=== PATIENT | female | born 1965 | race Caucasian/White ===

== ENCOUNTER 2017-12-09 15:27 | Inpatient (IN) | payer MEDICARE, MEDICAID ==
[~2017-12-09] VITALS: Ht 165.1 cm; Wt 95.0 kg
[2017-12-09] MEDS ORDERED: LURA20TA PO (16:07)
[2017-12-09] MEDS ORDERED: SERT50TA12 PO (16:07)
[2017-12-09] MEDS ORDERED: LISI1TAB9 PO (16:39)
[2017-12-09] MEDS ORDERED: PANT40TA25 PO (16:39)
[2017-12-09] MEDS ORDERED: AMIT50TA3 PO (16:39)
[2017-12-09 17:05] LABS: AMPHET/METH SCREEN,URINE NEGATIVE (NEGATIVE); BARBITURATE SCREEN, URINE NEGATIVE (NEGATIVE); BENZODIAZEPINES SCREEN,URINE NEGATIVE (NEGATIVE); CANNABINOID SCREEN,URINE NEGATIVE (NEGATIVE); COCAINE SCREEN,URINE NEGATIVE (NEGATIVE); METHADONE SCREEN, URINE NEGATIVE (NEGATIVE); OPIATE SCREEN,URINE NEGATIVE (NEGATIVE)
[2017-12-09 17:06] LABS: PHENCYCLIDINE SCREEN,URINE NEGATIVE (NEGATIVE)
[2017-12-09 17:12] LABS: BASOPHILS % (AUTO) 0.5 % (0.0-2.0); EOSINOPHILS % (AUTO) 1.8 % (1.0-6.0); HEMATOCRIT 34.5 % (36-46); HEMOGLOBIN 11.2 g/dL (12.0-16.0); LYMPHOCYTES # (AUTO) 1.8 K/uL (1.0-4.8); MEAN CORPUSCULAR HEMOGLOBIN 23.5 pg (26.0-34.0); MEAN CORPUSCULAR HGB CONC 32.3 G/dL (31.0-37.0); MEAN CORPUSCULAR VOLUME 73 fL (80-100); MONOCYTES # (AUTO) 0.6 K/uL (0.1-1.0); MONOCYTES % (AUTO) 8.3 % (2.0-9.0); NEUTROPHILS # (AUTO) 4.9 K/uL (1.8-7.7); NEUTROPHILS % (AUTO) 65.4 % (40.0-70.0); PLATELET COUNT (AUTO) 287 K/uL (150-450); RED BLOOD CELL COUNT(AUTO) 4.74 MIL/uL (4.00-5.20); RED CELL DISTRIBUTION WIDTH 17.4 % (11.5-14.5)
[2017-12-09 17:22] LABS: ANION GAP 11 mmol/L (8-16); CALCIUM, TOTAL 8.6 mg/dL (8.8-10.5); CARBON DIOXIDE 27 mmol/L (22-29); CHLORIDE 102 mmol/L (98-107); CREATININE 0.78 mg/dL (0.60-1.30); GLOMERULAR FILTR. RATE CALC > 60 mL/min (>60); GLUCOSE,RANDOM 84 mg/dL (70-110); POTASSIUM 3.3 mmol/L (3.5-5.1); SODIUM SERUM 140 mmol/L (136-145); UREA NITROGEN, BLOOD 8 mg/dL (7-18)
[2017-12-09 17:28] LABS: ALANINE AMINOTRANSFERASE 45 U/L (12-78); ALBUMIN 3.9 g/dL (3.4-5.0); ALKALINE PHOSPHATASE 92 U/L (46-116); ASPARTATE AMINOTRANSFERASE 26 U/L (15-37); BILIRUBIN,TOTAL 0.2 mg/dL (0.1-1.0); TOTAL PROTEIN, SERUM 7.7 g/dL (6.4-8.2)
[2017-12-09] MEDS ORDERED: HALOPERIDOL 5 MG TABLET PO PRN (18:15)
[2017-12-09] MEDS ORDERED: POTASSIUM CHLORIDE 20 MEQ ER TABLET ONE (22:27)
[2017-12-09] MEDS ORDERED: POTASSIUM CHLORIDE 20 MEQ ER TABLET PO ONE (22:30)
[2017-12-10 00:12] VITALS: BP 141/83
[2017-12-10] MEDS: LORazepam 2 MG TABLET PO PRN (00:16)
[2017-12-10] MEDS ORDERED: PETROLATUM,WHITE 71 GM JELLY TP PRN (02:30)
[2017-12-10] MEDS ORDERED: LOPERAMIDE HCL 2 MG CAPSULE PO PRN (02:30)
[2017-12-10] MEDS ORDERED: MAG HYDROX/AL HYDROX/SIMETH ES 30 ML SUSPENSION UDCUP PO PRN (02:30)
[2017-12-10] MEDS ORDERED: MAGNESIUM HYDROXIDE SUSPENSION 30 ML UDCUP PO PRN (02:30)
[2017-12-10] MEDS ORDERED: CloNIDine HCL 0.1 MG TABLET PO PRN (02:30)
[2017-12-10] MEDS ORDERED: ALBUTEROL SULFATE HFA 90 MCG/PUFF 8 GM INHALER IH PRN (02:30)
[2017-12-10 08:23] LABS: BASOPHILS % (AUTO) 0.3 % (0.0-2.0); EOSINOPHILS % (AUTO) 2.4 % (1.0-6.0); HEMATOCRIT 35.7 % (36-46); HEMOGLOBIN 11.3 g/dL (12.0-16.0); LYMPHOCYTES # (AUTO) 2.4 K/uL (1.0-4.8); LYMPHOCYTES % (AUTO) 26.3 % (22.0-44.0); MEAN CORPUSCULAR HEMOGLOBIN 23.3 pg (26.0-34.0); MEAN CORPUSCULAR HGB CONC 31.7 G/dL (31.0-37.0); MEAN CORPUSCULAR VOLUME 73 fL (80-100); MONOCYTES # (AUTO) 0.8 K/uL (0.1-1.0); MONOCYTES % (AUTO) 8.4 % (2.0-9.0); NEUTROPHILS # (AUTO) 5.6 K/uL (1.8-7.7); NEUTROPHILS % (AUTO) 62.6 % (40.0-70.0); PLATELET COUNT (AUTO) 320 K/uL (150-450); RED BLOOD CELL COUNT(AUTO) 4.86 MIL/uL (4.00-5.20); RED CELL DISTRIBUTION WIDTH 17.8 % (11.5-14.5)
[2017-12-10 08:50] LABS: ALANINE AMINOTRANSFERASE 41 U/L (12-78); ALBUMIN 3.9 g/dL (3.4-5.0); ALKALINE PHOSPHATASE 90 U/L (46-116); ANION GAP 8 mmol/L (8-16); ASPARTATE AMINOTRANSFERASE 21 U/L (15-37); BILIRUBIN,TOTAL 0.3 mg/dL (0.1-1.0); CALCIUM, TOTAL 8.3 mg/dL (8.8-10.5); CARBON DIOXIDE 28 mmol/L (22-29); CHLORIDE 104 mmol/L (98-107); CREATININE 0.72 mg/dL (0.60-1.30); FREE T4 (FREE THYROXINE) 0.84 ng/dL (0.76-1.46); GLOMERULAR FILTR. RATE CALC > 60 mL/min (>60); GLUCOSE,RANDOM 118 mg/dL (70-110); POTASSIUM 3.7 mmol/L (3.5-5.1); SODIUM SERUM 140 mmol/L (136-145); THYROID STIMULATING HORMONE 1.74 uIU/mL (0.36-3.74); TOTAL PROTEIN, SERUM 7.9 g/dL (6.4-8.2); UREA NITROGEN, BLOOD 9 mg/dL (7-18)
[2017-12-10] MEDS: NICOTINE 14 MG/24 HOUR PATCH TD SCH (09:00)
[2017-12-10] MEDS ORDERED: POTASSIUM CHLORIDE 20 MEQ ER TABLET PO SCH (09:00)
[2017-12-10 09:14] VITALS: BP 136/80
[2017-12-10] MEDS: ARIPiprazole 10 MG TABLET PO SCH (11:57)
[2017-12-10] MEDS: FERROUS SULFATE 325 MG EC TABLET PO SCH (16:32)
[2017-12-11] MEDS: FERROUS SULFATE 325 MG EC TABLET PO SCH ×2 (06:37→16:43)
[2017-12-11 06:48] VITALS: BP 131/78
[2017-12-11 08:00] VITALS: BP 121/75
[2017-12-11 08:46] LABS: HEMOGLOBIN A1C 7.6 % (4.5-6.2)
[2017-12-11] MEDS: HYDROCHLOROTHIAZIDE 25 MG TABLET PO SCH (08:54)
[2017-12-11] MEDS: LISINOPRIL 10 MG TABLET PO SCH (08:54)
[2017-12-11] MEDS: ARIPiprazole 10 MG TABLET PO SCH (08:54)
[2017-12-11] MEDS: NICOTINE 14 MG/24 HOUR PATCH TD SCH (08:55)
[2017-12-11 09:13] LABS: CHOL/HDL RATIO 3.9 (3.9-5.7); THYROID STIMULATING HORMONE 0.75 uIU/mL (0.36-3.74)
[2017-12-11 13:06] VITALS: BP 117/57
[2017-12-11] MEDS: IBUPROFEN 400 MG TABLET PO PRN ×2 (13:06→22:26)
[2017-12-11 16:00] VITALS: BP 133/99
[2017-12-11] MEDS: LORazepam 2 MG TABLET PO PRN (16:59)
[2017-12-11 22:26] VITALS: BP 135/86
[2017-12-12] MEDS: FERROUS SULFATE 325 MG EC TABLET PO SCH ×2 (07:05→16:02)
[2017-12-12 07:23] VITALS: BP 132/88
[2017-12-12] MEDS: LISINOPRIL 10 MG TABLET PO SCH (08:40)
[2017-12-12] MEDS: ARIPiprazole 10 MG TABLET PO SCH (08:40)
[2017-12-12] MEDS: NICOTINE 14 MG/24 HOUR PATCH TD SCH (08:42)
[2017-12-12] MEDS: HYDROCHLOROTHIAZIDE 25 MG TABLET PO SCH (08:42)
[2017-12-12] MEDS: LORazepam 2 MG TABLET PO PRN ×3 (09:32→21:17)
[2017-12-12] MEDS: IBUPROFEN 400 MG TABLET PO PRN (11:47)
[2017-12-12 16:00] VITALS: BP 132/89
[2017-12-12] MEDS: ACETAMINOPHEN 325 MG TABLET PO PRN (16:37)
[2017-12-12] MEDS: ONDANSETRON HCL 4 MG TABLET PO PRN (17:15)
[2017-12-12 21:15] VITALS: BP 128/85
[2017-12-13 05:08] VITALS: BP 135/84
[2017-12-13] MEDS: LORazepam 2 MG TABLET PO PRN ×3 (05:25→22:48)
[2017-12-13] MEDS: IBUPROFEN 400 MG TABLET PO PRN ×2 (05:26→14:05)
[2017-12-13] MEDS: FERROUS SULFATE 325 MG EC TABLET PO SCH ×2 (06:46→16:08)
[2017-12-13] MEDS: ARIPiprazole 10 MG TABLET PO SCH ×2 (09:00→16:08)
[2017-12-13] MEDS: NICOTINE 14 MG/24 HOUR PATCH TD SCH (09:00)
[2017-12-13 09:30] VITALS: BP 155/77
[2017-12-13] MEDS: ACETAMINOPHEN 325 MG TABLET PO PRN (09:30)
[2017-12-13] MEDS: HYDROCHLOROTHIAZIDE 25 MG TABLET PO SCH (09:32)
[2017-12-13] MEDS: LISINOPRIL 10 MG TABLET PO SCH (09:32)
[2017-12-13 16:15] VITALS: BP 133/72
[2017-12-13] MEDS: ONDANSETRON HCL 4 MG TABLET PO PRN (17:38)
[2017-12-14] MEDS: ZOLPIDEM TARTRATE 10 MG TABLET PO PRN (01:17)
[2017-12-14 01:41] VITALS: BP 133/71
[2017-12-14 06:34] LABS: GLUCOMETER DEV NAME(LOC) BV3S 2; GLUCOSE,POINT OF CARE 97 MG/DL (70-110)
[2017-12-14] MEDS: FERROUS SULFATE 325 MG EC TABLET PO SCH ×2 (07:08→16:52)
[2017-12-14] MEDS: LISINOPRIL 10 MG TABLET PO SCH (08:18)
[2017-12-14] MEDS: HYDROCHLOROTHIAZIDE 25 MG TABLET PO SCH (08:18)
[2017-12-14] MEDS: ARIPiprazole 10 MG TABLET PO SCH ×2 (08:19→16:02)
[2017-12-14 08:26] VITALS: BP 138/79
[2017-12-14 16:02] VITALS: BP 119/67
[2017-12-14] MEDS: IBUPROFEN 400 MG TABLET PO PRN (16:02)
[2017-12-14] MEDS: LORazepam 2 MG TABLET PO PRN (16:02)
[2017-12-14 16:11] VITALS: BP 133/78
[2017-12-14] MEDS ORDERED: LORazepam 2 MG/ML VIAL IM ONE (18:30)
[2017-12-14] MEDS ORDERED: HALOPERIDOL LACTATE 5 MG/ML VIAL IM ONE (18:30)
[2017-12-14] MEDS ORDERED: DiphenhydrAMINE HCL 50 MG/ML VIAL IM ONE (18:30)
[2017-12-14 23:45] VITALS: BP 137/84
[2017-12-15 04:55] VITALS: BP 127/61
[2017-12-15] MEDS: FERROUS SULFATE 325 MG EC TABLET PO SCH ×2 (07:01→17:00)
[2017-12-15 08:36] VITALS: BP 128/71
[2017-12-15] MEDS: ARIPiprazole 10 MG TABLET PO SCH ×2 (09:00→17:00)
[2017-12-15] MEDS: HYDROCHLOROTHIAZIDE 25 MG TABLET PO SCH (09:00)
[2017-12-15] MEDS: LISINOPRIL 10 MG TABLET PO SCH (09:49)
[2017-12-15 16:35] VITALS: BP 136/80
[2017-12-15] MEDS: ZOLPIDEM TARTRATE 10 MG TABLET PO PRN (20:26)
[2017-12-15 21:24] VITALS: BP 139/82
[2017-12-15] MEDS: ACETAMINOPHEN 325 MG TABLET PO PRN (21:27)
[2017-12-16 01:52] VITALS: BP 137/77
[2017-12-16] MEDS: FERROUS SULFATE 325 MG EC TABLET PO SCH ×2 (06:35→16:50)
[2017-12-16] MEDS: LORazepam 2 MG TABLET PO PRN ×2 (08:32→16:49)
[2017-12-16] MEDS: LISINOPRIL 10 MG TABLET PO SCH (08:32)
[2017-12-16] MEDS: ARIPiprazole 10 MG TABLET PO SCH ×2 (08:32→17:00)
[2017-12-16] MEDS: HYDROCHLOROTHIAZIDE 25 MG TABLET PO SCH (08:32)
[2017-12-16 16:05] VITALS: BP 128/77
[2017-12-16 16:50] VITALS: BP 139/88
[2017-12-16] MEDS: DOCUSATE SODIUM 100 MG CAPSULE PO PRN (16:50)
[2017-12-16] MEDS: IBUPROFEN 400 MG TABLET PO PRN (16:50)
[2017-12-16] MEDS: ZOLPIDEM TARTRATE 10 MG TABLET PO PRN (20:16)
[2017-12-17 00:37] VITALS: BP 132/79
[2017-12-17] MEDS: IBUPROFEN 400 MG TABLET PO PRN ×2 (00:41→17:50)
[2017-12-17] MEDS: FERROUS SULFATE 325 MG EC TABLET PO SCH ×2 (06:32→16:57)
[2017-12-17 08:15] VITALS: BP 122/68
[2017-12-17] MEDS: HYDROCHLOROTHIAZIDE 25 MG TABLET PO SCH (09:00)
[2017-12-17] MEDS: ARIPiprazole 10 MG TABLET PO SCH ×2 (09:00→16:57)
[2017-12-17] MEDS: LISINOPRIL 10 MG TABLET PO SCH (09:18)
[2017-12-17] MEDS: LORazepam 2 MG TABLET PO PRN ×2 (09:18→21:41)
[2017-12-17] MEDS ORDERED: MAG HYDROX/AL HYDROX/SIMETH ES 30 ML SUSPENSION UDCUP PO PRN (10:45)
[2017-12-17] MEDS: DOCUSATE SODIUM 100 MG CAPSULE PO PRN (12:57)
[2017-12-17 16:00] VITALS: BP 131/87
[2017-12-17 18:50] VITALS: BP 128/85
[2017-12-18 00:10] VITALS: BP 114/75
[2017-12-18] MEDS: ZOLPIDEM TARTRATE 10 MG TABLET PO PRN ×2 (00:22→20:41)
[2017-12-18] MEDS: FERROUS SULFATE 325 MG EC TABLET PO SCH ×2 (06:53→16:29)
[2017-12-18] MEDS: HYDROCHLOROTHIAZIDE 25 MG TABLET PO SCH (09:00)
[2017-12-18] MEDS: ARIPiprazole 10 MG TABLET PO SCH ×2 (09:00→16:30)
[2017-12-18] MEDS: LISINOPRIL 10 MG TABLET PO SCH (09:47)
[2017-12-18] MEDS: LORazepam 2 MG TABLET PO PRN ×2 (09:48→16:29)
[2017-12-18 16:04] VITALS: BP 122/73
[2017-12-18] MEDS: DOCUSATE SODIUM 100 MG CAPSULE PO PRN ×2 (16:29→20:42)
[2017-12-19] MEDS: ACETAMINOPHEN 325 MG TABLET PO PRN (00:17)
[2017-12-19] MEDS: FERROUS SULFATE 325 MG EC TABLET PO SCH (07:00)
[2017-12-19 08:29] VITALS: BP 130/86
[2017-12-19] MEDS: ARIPiprazole 10 MG TABLET PO SCH (09:00)
[2017-12-19] MEDS: HYDROCHLOROTHIAZIDE 25 MG TABLET PO SCH (09:00)
[2017-12-19] MEDS: LISINOPRIL 10 MG TABLET PO SCH (09:28)
[2017-12-19] MEDS ORDERED: HYDR25TA PO (12:53)
[2017-12-19] MEDS ORDERED: ARIP10TA8 PO (12:53)
[2017-12-19] MEDS ORDERED: LISI-661 PO (12:53)
[2017-12-19] MEDS ORDERED: FERR-89 PO (12:53)
== END 2017-12-19 14:00 | disposition home or self-care (01) | DRG 885 ==
LOC: EMS 15:29 → B3A 20:30
PROVIDERS: ADMIT Psychiatry & Neurology Child & Adolescent Psychiatry; ATTEND Psychiatry & Neurology Child & Adolescent Psychiatry
DX: F31.4 Bipolar disorder, current episode depressed, severe, without psychotic features (principal); F23 Brief psychotic disorder; D64.9 Anemia, unspecified; E78.5 Hyperlipidemia, unspecified; E83.51 Hypocalcemia; E87.6 Hypokalemia; I10 Essential (primary) hypertension; K21.9 Gastro-esophageal reflux disease without esophagitis; M19.90 Unspecified osteoarthritis, unspecified site; R73.03 Prediabetes; Z59.0 Homelessness; Z85.841 Personal history of malignant neoplasm of brain; Z88.1 Allergy status to other antibiotic agents
CPT/HCPCS: 83036; 84439; 84443; 99285; G0480; J1200; J1630; J2060; Q0162

== ENCOUNTER 2017-12-14 19:00 | Emergency (ER) | payer MEDICARE, MEDICAID ==
[~2017-12-14] VITALS: Ht 162.6 cm; Wt 113.6 kg
[~2017-12-14 19:00] MED LIST: AMIT50TA3 PO; LISI1TAB9 PO; LURA20TA PO; PANT40TA25 PO; SERT50TA12 PO
[2017-12-14] MEDS ORDERED: METOCLOPRAMIDE HCL 5 MG/ML 2 ML VIAL IM ONE (20:15)
[2017-12-14] MEDS ORDERED: MORPHINE SULFATE 4 MG/ML SYRINGE IM ONE (20:15)
[2017-12-14 20:24] LABS: CALCIUM, TOTAL 9.3 mg/dL (8.8-10.5); CREATININE 1.06 mg/dL (0.60-1.30); POTASSIUM 3.6 mmol/L (3.5-5.1)
[2017-12-14 20:29] LABS: ALBUMIN 4.6 g/dL (3.4-5.0); BILIRUBIN,TOTAL 0.2 mg/dL (0.1-1.0)
[2017-12-14 21:35] LABS: BASOPHILS % (AUTO) 0.2 % (0.0-2.0); EOSINOPHILS % (AUTO) 0.7 % (1.0-6.0); HEMATOCRIT 39.5 % (36-46); HEMOGLOBIN 12.7 g/dL (12.0-16.0); LYMPHOCYTES # (AUTO) 1.4 K/uL (1.0-4.8); LYMPHOCYTES % (AUTO) 14.2 % (22.0-44.0); MEAN CORPUSCULAR HEMOGLOBIN 23.8 pg (26.0-34.0); MEAN CORPUSCULAR HGB CONC 32.3 G/dL (31.0-37.0); MEAN CORPUSCULAR VOLUME 74 fL (80-100); MONOCYTES # (AUTO) 0.5 K/uL (0.1-1.0); MONOCYTES % (AUTO) 5.3 % (2.0-9.0); NEUTROPHILS % (AUTO) 79.6 % (40.0-70.0); PLATELET COUNT (AUTO) 352 K/uL (150-450); RED BLOOD CELL COUNT(AUTO) 5.35 MIL/uL (4.00-5.20)
[2017-12-14] MEDS ORDERED: DIPHENOXYLATE/ATROP 2.5-0.025 MG TABLET PO ONE (22:15)
[2017-12-14] MEDS ORDERED: ACETAMINOPHEN/CODEINE 300-30 MG TABLET PO ONE (22:15)
[2017-12-14 22:20] VITALS: BP 138/85
[2017-12-14] MEDS ORDERED: PANTOPRAZOLE SODIUM 40 MG DR TABLET PO ONE (23:00)
== END 2017-12-14 23:03 | disposition home or self-care (01) ==
LOC: EMS 19:01
DX: K52.9 Noninfective gastroenteritis and colitis, unspecified (principal); Z88.1 Allergy status to other antibiotic agents; Z91.041 Radiographic dye allergy status
CPT/HCPCS: 36415; 74176; 80053; 83690; 84484; 85025; 96372; 99285; J2270; J2765

== ENCOUNTER 2017-12-15 00:15 | Emergency (ER) | payer MEDICARE, MEDICAID ==
[~2017-12-15] VITALS: Ht 165.1 cm; Wt 84.1 kg
[2017-12-15] MEDS ORDERED: PROCHLORPERAZINE EDISYLATE 5 MG/ML 2 ML VIAL IM ONE (02:15)
[2017-12-15 03:05] VITALS: BP 127/67
== END 2017-12-15 03:29 | disposition home or self-care (01) ==
LOC: EMS 00:16
DX: F31.9 Bipolar disorder, unspecified (principal); F22 Delusional disorders; R11.10 Vomiting, unspecified; Z88.1 Allergy status to other antibiotic agents; Z91.041 Radiographic dye allergy status
CPT/HCPCS: 96372; 99283; J0780

== ENCOUNTER 2018-12-17 16:54 | Emergency (ER) | payer MEDICAID, MEDICARE ==
[~2018-12-17] VITALS: Ht 165.1 cm; Wt 88.6 kg
[~2018-12-17 16:54] MED LIST changes: -AMIT50TA3 PO; +ARIP10TA8 PO; +FERR-89 PO; +HYDR25TA PO; +LISI-661 PO; -LISI1TAB9 PO; -LURA20TA PO; -PANT40TA25 PO; -SERT50TA12 PO
[2018-12-17 19:35] LABS: BASOPHILS % (AUTO) 0.3 % (0.0-2.0); EOSINOPHILS % (AUTO) 3.1 % (1.0-6.0); HEMATOCRIT 35.5 % (36-46); HEMOGLOBIN 10.8 g/dL (12.0-16.0); LYMPHOCYTES # (AUTO) 1.9 K/uL (1.0-4.8); MEAN CORPUSCULAR HEMOGLOBIN 22.3 pg (26.0-34.0); MEAN CORPUSCULAR HGB CONC 30.3 G/dL (31.0-37.0); MEAN CORPUSCULAR VOLUME 74 fL (80-100); MONOCYTES # (AUTO) 0.6 K/uL (0.1-1.0); MONOCYTES % (AUTO) 7.5 % (2.0-9.0); NEUTROPHILS # (AUTO) 4.8 K/uL (1.8-7.7); NEUTROPHILS % (AUTO) 64.1 % (40.0-70.0); PLATELET COUNT (AUTO) 392 K/uL (150-450); RED BLOOD CELL COUNT(AUTO) 4.83 MIL/uL (4.00-5.20); RED CELL DISTRIBUTION WIDTH 18.1 % (11.5-14.5)
[2018-12-17 19:47] LABS: ANION GAP 12 mmol/L (8-16); CALCIUM, TOTAL 8.9 mg/dL (8.8-10.5); CARBON DIOXIDE 29 mmol/L (22-29); CHLORIDE 103 mmol/L (98-107); CREATININE 0.93 mg/dL (0.60-1.30); GLOMERULAR FILTR. RATE CALC > 60 mL/min (>60); GLUCOSE,RANDOM 119 mg/dL (70-110); POTASSIUM 3.6 mmol/L (3.5-5.1); SODIUM SERUM 144 mmol/L (136-145); UREA NITROGEN, BLOOD 12 mg/dL (7-18)
[2018-12-17 19:53] LABS: ALANINE AMINOTRANSFERASE 19 U/L (12-78); ALKALINE PHOSPHATASE 92 U/L (46-116); ASPARTATE AMINOTRANSFERASE 13 U/L (15-37); BILIRUBIN,TOTAL 0.2 mg/dL (0.1-1.0); LIPASE 73 U/L (73-393); TOTAL PROTEIN, SERUM 7.7 g/dL (6.4-8.2)
[2018-12-17 20:09] LABS: PLATELET MORPHOLOGY COMMENT NORMAL
[2018-12-17 21:21] LABS: APPEARANCE,URINE CLOUDY (CLEAR); GLUCOSE, URINE (UA) NEGATIVE (NEGATIVE); KETONES,URINE NEGATIVE (NEGATIVE); LEUKOCYTE ESTERASE ,URINE SMALL (NEGATIVE); NITRATE,URINE NEGATIVE (NEGATIVE); OCCULT BLOOD,URINE NEGATIVE (NEGATIVE); PROTEIN,URINE TRACE (NEGATIVE); UROBILINOGEN,URINE 0.2 mg/dL (<=1.0)
[2018-12-17 21:25] LABS: BILIRUBIN,URINE PRELIM. POSITIVE (NEGATIVE)
[2018-12-17 21:37] LABS: BACTERIA,URINE Moderate /HPF (None Seen); RBC,URINE 0-2 /HPF (0-2); SQUAMOUS EPITHELIAL CELL,UR Moderate /LPF (None Seen)
[2018-12-17] MEDS ORDERED: IOVERSOL 350 MG/ML 150 ML VIAL ONE (21:42)
[2018-12-17] MEDS ORDERED: SODIUM CHLORIDE 0.9% 0 ML ONE (21:43)
[2018-12-17] MEDS ORDERED: KETOROLAC TROMETHAMINE 30 MG/ML VIAL IVP ONE (21:45)
[2018-12-17] MEDS ORDERED: ONDANSETRON HCL 4 MG/2 ML VIAL IVP ONE (21:45)
[2018-12-17] MEDS ORDERED: HYDROCODONE/ACETAMINOPHEN 5-325 MG TABLET PO ONE (23:45)
[2018-12-18] MEDS ORDERED: SULFAMETHOX/TRIMETH DS 800-160 MG/TABLET PO ONE (00:30)
[2018-12-18] MEDS ORDERED: PB/HYOSCY/ATR/SCOP/LIDO/MAALOX 55 ML BOTTLE PO ONE (00:30)
[2018-12-18] MEDS ORDERED: HYDROCODONE/ACETAMINOPHEN 5-325 MG TABLET PO ONE (01:30)
[2018-12-18 02:29] VITALS: BP 127/79
== END 2018-12-18 02:33 | disposition home or self-care (01) ==
LOC: EMS 16:58
DX: N39.0 Urinary tract infection, site not specified (principal); K59.00 Constipation, unspecified; F31.9 Bipolar disorder, unspecified; Z88.1 Allergy status to other antibiotic agents; Z91.041 Radiographic dye allergy status; Z90.49 Acquired absence of other specified parts of digestive tract
CPT/HCPCS: 36415; 74176; 80053; 81001; 83690; 84484; 85025; 87077; 87086; 93005; 96374; 99284; J1885; J2405; J7050